=== PATIENT | male | born 1975 | race African-American/Black ===

== ENCOUNTER 2022-03-27 22:03 | Emergency (ER) | payer BC, OTHER ==
[~2022-03-27] VITALS: Ht 180.3 cm; Wt 115.7 kg
[2022-03-28] MEDS ORDERED: SYMBICORT 16010.2 GM IH (04:40)
[2022-03-28] MEDS ORDERED: ZYNCOF 20-400120 ML PO (04:40)
[2022-03-28] MEDS ORDERED: ZITHROMAX500 MG PO (04:40)
== END 2022-03-28 04:45 | disposition home or self-care (01) ==
LOC: ER 22:03
DX: U07.1 COVID-19 (principal); Z88.0 Allergy status to penicillin; Z88.8 Allergy status to other drugs, medicaments and biological substances